=== PATIENT | female | born 1930 | race Caucasian/White ===

== ENCOUNTER 2019-01-10 13:35 | Emergency (ER) | payer MEDICARE, OTHER ==
[~2019-01-10] VITALS: Ht 152.4 cm; Wt 45.0 kg
[2019-01-10] MEDS ORDERED: ONDANSETRON 2MG/ML, 2ML IVPush ONE (14:00)
[2019-01-10] MEDS ORDERED: SODIUM CHLORIDE FLUSH 10ML SYR IVF ONE (14:00)
[2019-01-10] MEDS ORDERED: SODIUM CHLORIDE 0.9%, 500ML IVBOLUS ONE (14:00)
[2019-01-10] MEDS ORDERED: ONDANSETRON ODT 4 MG PO ONE (15:00)
[2019-01-10] MEDS ORDERED: ONDANSETRON ODT 4 MG ONE (15:01)
[2019-01-10 15:02] LABS: MICROSCOPIC AUTO
[2019-01-10 15:04] LABS: CULTURE INDICATED? NO
[2019-01-10 15:05] VITALS: BP 121/74
== END 2019-01-10 15:54 | disposition left against medical advice (07) ==
LOC: ED 15:40
DX: A41.9 Sepsis, unspecified organism (principal); J15.9 Unspecified bacterial pneumonia; R51 Headache; Z72.89 Other problems related to lifestyle
CPT/HCPCS: 71045; 81001; 93005; 99291; Q0162; 99284